=== PATIENT | male | born 1955 | race Caucasian/White ===

== ENCOUNTER 2018-01-30 12:40 | Emergency (ER) | payer OTHER ==
[2018-01-30] MEDS: DEXAMETHASONE 10 MG/ML 1 ML INJ PO (13:59)
[2018-01-30] MEDS: KETOROLAC 60 MG INJ IM (14:00)
== END 2018-01-30 15:13 | disposition home or self-care (01) ==
LOC: FTE 12:40
DX: F17.210 Nicotine dependence, cigarettes, uncomplicated (principal)
CPT/HCPCS: 73502; 73510; 96372; 99284-25